=== PATIENT | male | born 1960 | race African-American/Black ===

== ENCOUNTER 2020-08-05 11:51 | Observation (INO) ==
[2020-08-05] MEDS ORDERED: NITROGLYCERIN SL 0.4 MG/TAB TAB SL PRN ×2 (12:04→15:54)
[2020-08-05] MEDS ORDERED: NITROGLYCERIN 2% OINTMENT 30GM TUBE EXT STA (12:04)
[2020-08-05] MEDS ORDERED: SODIUM CHLORIDE 0.9% 1000ML 1,000 ML IV STA (12:08)
[2020-08-05] MEDS ORDERED: SODIUM CHLORIDE 0.9% 1000ML 500 ML IV ONE (12:08)
[2020-08-05 12:14] LABS: Basophils # (auto) 0.01 K/uL (0-0.2); Basophils % (auto) 0.1 %; Eosinophils # (auto) 0.06 K/uL (0-0.5); Eosinophils % (auto) 0.9 %; Hematocrit (blood only) 40.3 % (42-52); Hemoglobin 12.4 g/dL (14.0-18.0); Immature Granulocytes # (auto) 0.02 K/uL (0.00-0.02); Immature Granulocytes % (auto) 0.3 %; Lymphocytes % (auto) 37.1 %; Mean Corpuscular Hemoglobin 24.8 pg (25-34); Mean Corpuscular Hgb Conc 30.8 g/dL (32-36); Mean Corpuscular Volume 80.4 fL (80-100); Mean Platelet Volume 11.2 fL (7.4-10.4); Monocytes # (auto) 0.49 K/uL (0.11-0.59); Neutrophils # (auto) 3.82 K/uL (1.4-6.5); Neutrophils % (auto) 54.6 %; Platelet Count 193 K/uL (130-400); RDW Coefficient of Variation 15.4 % (11.5-14.5); RDW Standard Deviation 45.1 fL (36.4-46.3); Red Blood Count 5.01 M/uL (4.7-6.1)
[2020-08-05 12:24] LABS: D Dimer 190 ug/L FEU (0-500)
[2020-08-05 12:42] LABS: Alanine Aminotransferase 39 U/L (12-78); Albumin Level 3.1 gm/dl (3.4-5.0); BUN Creatinine Ratio 9.3 (10-20); Blood Urea Nitrogen 10 mg/dl (7-18); Calcium 8.2 mg/dl (8.5-10.1); Carbon Dioxide 22 mmol/L (21-32); Chloride 113 mmol/L (98-107); Creatinine Clr Calc Pharmacy 108.6 ml/min; Est GFR (African American) 87.2; Est GFR (Non-African American) 75.3; Glucose 103 mg/dl (70-99); Lipase 109 U/L (73-393); Sodium 143 mmol/L (136-145)
[2020-08-05 12:46] LABS: Albumin Globulin Ratio 0.8 (0.9-2); Alkaline Phosphatase 124 U/L (45-117); Bilirubin,Total 0.3 mg/dl (0.2-1); Total Protein 7.1 gm/dl (6.4-8.2); Troponin I < 0.015 ng/ml (0-0.045)
--- NOTE | 2020-08-05 12:57 | XRay Report ---
XR chest 1V portable HISTORY: Atypical Chest Pain COMPARISON: None. FINDINGS: Low lung volumes with mild elevation the right hemidiaphragm. Increased markings at the panda g bases likely represent dependent change/atelectasis. The upper lung zones remain clear. No focal luisito ng consolidations to suggest pneumonia. No evidence for pulmonary edema. Cardiac silhouette is border line enlarged. This may be accentuated by the low lung volumes. IMPRESSION: Low lung findings with increased markings at the lung bases favoring dependent change/atelectasis. Ot herwise, no acute process within the chest. ACT 112: Negative or not required by law. Electronically signed by: Francisco Barajas M.D. 08/05/2020 12:56 PM
[2020-08-05] MEDS ORDERED: KETOROLAC TROMETHAMINE 15 MG/ML VIAL IV ONE (13:02)
--- NOTE | 2020-08-05 13:06 | Emergency Department Note ---
Impression & Plan Substernal chest pain ED Provider Note INFORMANT: Patient ED PROVIDER(S): Abdiel Juarez MD CHIEF COMPLAINT: Chest pain PLAN: Disposition: Admitted Condition: Good Outpatient prescription management: none Referral: None MEDICAL DECISION MAKING: Patient presented due to chest pain. Has been using nitroglycerin. He is a cardiac history. His ECG was nonischemic. Chest x-ray was unremarkable. Troponin and D-dimer are negative. Chemistry panel CBC unremarkable. Given his cardiac history further management was felt to be appropriate in the hospital. Patient was given nitro glycerin, Nitropaste, and Toradol. [facility] The patient was evaluated by Dr. Haddad and admitted for further management. Triage Nursing notes reviewed and agree them. Vital Signs: reviewed and remarkable for no significant abnormalities Differential diagnosis: Cardiac ischemia, aortic dissection, pulmonary embolism, pneumothorax, pneumonia, pericarditis, myocarditis, esophageal rupture, GERD, cholecystitis, pancreatitis, musculoskeletal, as well as other pathologies. Diagnostics interpreted by me: ECG: Twelve-lead ECG reveals sinus rhythm with PVCs at [address] elevation or depression. Normal axis and QRS. Cardiac Monitoring:Cardiac monitoring ordered by me: The patient was placed on continuous cardiac monitoring and observed. It revealed a normal sinus rhythm at 72 beats per minute without ectopy or evidence of dysrhythmia. Imaging studies: Chest x-ray. Findings: A chest x-ray was performed and revealed no pneumothorax, effusion, infiltrate, pulmonary edema, free air under the diaphragm, or wide mediastinum. Impression: No acute disease. Consultation(s): [facility] HPI: The patient is a 60 year old male who presents to the Emergency Room with complaints of chest pain. This started over the last week and is exertional . The patient also notes the following associated symptoms, shortness of breath. The patient has been using nitroglycerin relieving factors. Current pain is rated as 6/10. Patient was given nitroglycerin by EMS. Pt denies LOC, headache, fevers, chills, diaphoresis, visual changes, neck pain, breathing difficulties, nausea, vomiting, abdominal pain, back pain, melena, hematochezia, urinary symptoms, numbness, weakness, lymphadenopathy, rash, or other compla ints. ROS: See above HPI for pertinent positives & negatives. A total of 10 systems reviewed and were otherwise negative. PAST MEDICAL HISTORY:See Below , CAD, [place] PAST SURGICAL HISTORY:See Below, coronary stent FAMILY HISTORY:See Below SOCIAL HISTORY:See Below, incarcerated HOME MEDICATIONS:See Below ALLERGIES:See Below VITALS:See Below PHYSICAL EXAMINATION: GENERAL: Awake, alert, well-appearing, in no distress HENT: Normocephalic, atraumatic. Oropharynx unremarkable. EYES: Normal conjunctiva. Sclera non-icteric. NECK: Inspection normal. Non-tender. Supple. No nuchal rigidity. FROM. No masses. RESPIRATORY: Clear to auscultation. No wheezes. No rales. Normal respiratory effort. CARDIAC: Normal rate. Normal rhythm. No murmurs. No rubs. Extremities warm and well perfused. Pulses equal. No JVD. GI: Soft, non-distended. No tenderness to palpation. No rebound or guarding. No masses. RECTAL: Deferred. MUSCULOSKELETAL: Atraumatic. Chest examination reveals no tenderness. The back is symmetrical on inspection without obvious abnormality. There is no CVA tenderness to palpation. No joint edema. LOWER EXTREMITIES: Calves are equal size bilaterally and non-tender. No edema. No discoloration. NEURO: Normal sensorium. No sensory or motor deficits noted. SKIN: No rash or jaundice noted. Abdiel Juarez MD Past Med/Surg History Medical History (Updated 08/05/20 @ 14:11 by Bam Haddad MD) BPH (benign prostatic hyperplasia) Heart attack Heart failure Hypercholesterolemia Hypertension Seizure Stroke Surgical History History of heart surgery Family History Mother Diabetes Heart disease Hypertension Sister Gastric cancer Heart disease Social History Smoking Status: Former smoker Second Hand Exposure: No; Do You Dip or Chew Tobacco: No; Tobacco Cessation Education Requested by Patient: No Hx Alcohol Use: No Hx Substance Use: No Preferred Language: [place] Citizen Beliefs That Will Affect Care: None marital status: Single Current Living Situation: Other Current Living Situation Comment: [facility] Other Information That Helps Us Care for You: No Feels Safe at Home: Declines to Answer Safety Concerns: Feels Safe At This Time Assistive Devices: None Allergies Allergies Allergy/AdvReac Type Severity Reaction Status Date / Time No Known Allergies Allergy Verified 08/05/20 12:49 Home Meds Home Medications Medication Instructions Recorded Confirmed atorvastatin 40 mg PO QAM 02/28/20 08/05/20 cyanocobalamin (vitamin B-12) 1,000 mcg IM MONTHLY 02/28/20 08/05/20 duloxetine 120 mg PO QAM 02/28/20 08/05/20 folic acid 1 mg PO DAILY 02/28/20 08/05/20 hydroxyzine pamoate 50 mg PO HS 02/28/20 08/05/20 isosorbide mononitrate 120 mg PO BID 02/28/20 08/05/20 levetiracetam 500 mg PO BID 02/28/20 08/05/20 metoprolol tartrate 25 mg PO BID 02/28/20 08/05/20 nitroglycerin 0.4 mg SUBLINGUAL UD PRN 02/28/20 08/05/20 oxcarbazepine 600 mg PO BID 02/28/20 08/05/20 tamsulosin 0.4 mg PO BID 02/28/20 08/05/20 topiramate 50 mg PO BID 02/28/20 08/05/20 aspirin 81 mg PO DAILY 05/15/20 08/05/20 dutasteride 0.5 mg PO QAM 05/15/20 08/05/20 mirtazapine 30 mg PO HS 05/15/20 08/05/20 omeprazole 20 mg PO QAM 05/15/20 08/05/20 diclofenac potassium 50 mg PO TID 08/05/20 08/05/20 hydroxyzine pamoate 25 mg PO HS 08/05/20 08/05/20 methocarbamol 1,000 mg PO BID 08/05/20 08/05/20 prednisone 10 mg PO DAILY 08/05/20 08/05/20 Results & Data (ED) Vital Signs Vital Signs - 24 hr 08/05/20 12:02 08/05/20 13:38 Temperature 37 C Temperature Source Oral Pulse Rate 78 Pulse Rate [Left Finger] 75 Respiratory Rate 16 20 Blood Pressure 121/82 Blood Pressure [Left Arm] 132/91 Blood Pressure Mean 95 Blood Pressure Mean [Left Arm] 104 Pulse Oximetry 94 96 Oxygen Delivery Method Room Air Room Air Sepsis Recent Fever Within 48 Hours No Sepsis New/Unexplained Change in Mental Status No Sepsis Action Taken by Nursing No Action Required Laboratory Data Result diagrams: 08/05/20 12:01 08/05/20 13:00 Lab Results 08/05/20 08/05/20 08/05/20 Range/Units 12:01 12:01 12:01 WBC 7.00 (4.8-10.8) K/uL RBC 5.01 (4.7-6.1) M/uL Hgb 12.4 L (14.0-18.0) g/dL Hct 40.3 L (42-52) % MCV 80.4 (80-100) fL MCH 24.8 L (25-34) pg MCHC 30.8 L (32-36) g/dL RDW Std Deviation 45.1 (36.4-46.3) fL RDW Coeff of Axel 15.4 H (11.5-14.5) % Plt Count 193 (130-400) K/uL MPV 11.2 H (7.4-10.4) fL Immature Gran % (Auto) 0.3 % Neut % (Auto) 54.6 % Lymph % (Auto) 37.1 % Taliaferro % (Auto) 7.0 % Eos % (Auto) 0.9 % Baso % (Auto) 0.1 % Neut # (Auto) 3.82 (1.4-6.5) K/uL Lymph # (Auto) 2.60 (1.2-3.4) K/uL Tal[place]ferro # (Auto) 0.49 (0.11-0.59) K/uL Eos # (Auto) 0.06 (0-0.5) K/uL Baso # (Auto) 0.01 (0-0.2) K/uL Immature Gran # (Auto) 0.02 (0.00-0.02) K/uL D-Dimer 190 (0-500) ug/L FEU Sodium 143 (136-145) mmol/L Potassium (3.5-5.1) mmol/L Chloride 113 H (98-107) mmol/L Carbon Dioxide 22 (21-32) mmol/L Anion Gap 8.0 (3-11) BUN 10 (7-18) mg/dl Creatinine 1.08 (0.6-1.4) mg/dl Est Cr Clr Drug Dosing 108.6 ml/min Est GFR ( Amer) 87.2 Est GFR (Non-Af Amer) 75.3 BUN/Creatinine Ratio 9.3 L (10-20) Glucose 103 H (70-99) mg/dl Calcium 8.2 L (8.5-10.1) mg/dl Total Bilirubin 0.3 (0.2-1) mg/dl AST (15-37) U/L ALT 39 (12-78) U/L Alkaline Phosphatase 124 H (45-117) U/L Troponin I < 0.015 (0-0.045) ng/ml Total Protein 7.1 (6.4-8.2) gm/dl Albumin 3.1 L (3.4-5.0) gm/dl Globulin 4.0 (2.5-4.0) gm/dl Albumin/Globulin Ratio 0.8 L (0.9-2) Lipase 109 (73-393) U/L COVID-19 Eval Order SARS-CoV-2, RNA, NAAT (NEGATIVE) 08/05/20 08/05/20 08/05/20 Range/Units 12:38 12:38 13:00 WBC (4.8-10.8) K/uL RBC (4.7-6.1) M/uL Hgb (14.0-18.0) g/dL Hct (42-52) % MCV (80-100) fL MCH (25-34) pg MCHC (32-36) g/dL RDW Std Deviation (36.4-46.3) fL RDW Coeff of Axel (11.5-14.5) % Plt Count (130-400) K/uL MPV (7.4-10.4) fL Immature Gran % (Auto) % Neut % (Auto) % Lymph % (Auto) % Taliaferro % (Auto) % Eos % (Auto) % Baso % (Auto) % Neut # (Auto) (1.4-6.5) K/uL Lymph # (Auto) (1.2-3.4) K/uL Tal[place]ferro # (Auto) (0.11-0.59) K/uL Eos # (Auto) (0-0.5) K/uL Baso # (Auto) (0-0.2) K/uL Immature Gran # (Auto) (0.00-0.02) K/uL D-Dimer (0-500) ug/L FEU Sodium (136-145) mmol/L Potassium 3.9 (3.5-5.1) mmol/L Chloride (98-107) mmol/L Carbon Dioxide (21-32) mmol/L Anion Gap (3-11) BUN (7-18) mg/dl Creatinine (0.6-1.4) mg/dl Est Cr Clr Drug Dosing ml/min Est GFR ( Amer) Est GFR (Non-Af Amer) BUN/Creatinine Ratio (10-20) Glucose (70-99) mg/dl Calcium (8.5-10.1) mg/dl Total Bilirubin (0.2-1) mg/dl AST 18 (15-37) U/L ALT (12-78) U/L Alkaline Phosphatase (45-117) U/L Troponin I (0-0.045) ng/ml Total Protein (6.4-8.2) gm/dl Albumin (3.4-5.0) gm/dl Globulin (2.5-4.0) gm/dl Albumin/Globulin Ratio (0.9-2) Lipase (73-393) U/L COVID-19 Eval Order Covid19 [facility] SARS-CoV-2, RNA, NAAT NEGATIVE (NEGATIVE) Administered Medications Sodium Chloride (Nss 1000ml) 1,000 mls @ 125 mls/hr IV .Q8H STA Stop: 08/05/20 20:07 Last Admin: 08/05/20 13:40 Dose: 125 mls/hr Documented by: [id number] Discontinued Medications Sodium Chloride (Nss 1000ml) 500 mls @ 999 mls/hr IV .Q31M ONE Stop: 08/05/20 12:38 Last Infusion: 08/05/20 13:00 Dose: 0 mls/hr Documented by: [id number] Admin: 08/05/20 12:13 Dose: 999 mls/hr Documented by: [id number] Ketorolac Tromethamine (Ketorolac Tromethamine 15 Mg/Ml Vial) 10 mg IV NOW ONE Stop: 08/05/20 13:03 Last Admin: 08/05/20 13:46 Dose: 10 mg Documented by: [id number] Nitroglycerin (Nitroglycerin Sl 0.4 Mg/Tab Tab) 0.4 mg SL UD PRN PRN Reason: Chest Pain Stop: 09/04/20 12:03 Last Admin: 08/05/20 12:13 Dose: 0.4 mg Documented by: [id number] Nitroglycerin (Nitroglycerin 2% Ointment 30gm Tube) 0.5 inch EXT NOW STA Stop: 08/05/20 12:05 Last Admin: 08/05/20 12:13 Dose: 0.5 inch Documented by: [id number] Discharge Plan Visit Data Chief Complaint: Chest Pain ED Provider: Abdiel Juarez Discharge Problem: Substernal chest pain Patient Disposition: Admitted As Inpatient Discharge Instructions Interventions: ED Discharge Assessment Last Done: 08/05/20 15:32
[2020-08-05 13:20] LABS: Potassium 3.9 mmol/L (3.5-5.1)
--- NOTE | 2020-08-05 13:25 | History & Physical Report ---
Date of Service August 05, 2020 Assessment & Plan (1) Substernal chest pain: Previous probability is high given the patient has obesity and the known history of coronary disease with history of having for her intracoronary stents. He is on isosorbide and metoprolol as well as atorvastatin and aspirin. Description however is difficult to under stand whether this is exertional chest pain or not. He also states he cannot walk on a treadmill subsequent if his troponins are negative we will have him evaluate the dobutamine stress test on 08/06/2020 We will continue his aspirin atorvastatin metoprolol, currently on Nitropaste will hold this so we can better explore his symptom complex, will readdress his isosorbide in the morning his typical dose of 120 (2) Difficulty voiding: Patient history of BPH and also meatal stenosis with intermittent straight caths he will continue on Flomax and cholesterol at our substitution (3) Seizure: Longstanding seizure history preceding his reported stroke in 2019 he takes Keppra for this and has not had a recent known seizure. He also takes Topamax which he says is prophylactic for migraine headaches (4) Depression: continues on duloxitine and remeron hs (5) DVT prophylaxis: DVT prevention is heparin therapy Patient wishes to be a full code History of Present Illness Primary Care Provider: LUCIUS Owen 60-year-old incarcerated male who presents to the emergency department with complaints of chest discomfort. Medications include aspirin atorvastatin isosorbide 120 twice daily metoprolol 25 twice daily. Initial evaluation emergency department included negative troponins and negative EKG. patient is very difficult to pin down about his symptoms in any way. He states that he had stents put in in the distant past [facility]. He also has a stroke which sounds obtain [facility] [employer] in July 2019 also [facility]. Patient currently having chest pain currently after being given nitro so was sublingual x2 Nitropaste and Toradol. He has no acute current of injury change on EKG. This patient is chest discomfort is vague at some point it may be related to recumbency which makes me think of GERD however he states it is not exacerbated by moving about the [facility] although he does not move" of as much as he wants to. He says he gained weight lately but has not been associate with lower extremity edema or orthopnea. We have no records from his previous excursions to [facility] Allergies Allergy/AdvReac Type Severity Reaction Status Date / Time No Known Allergies Allergy Verified 08/05/20 12:49 Home Medications Medication Instructions Recorded Confirmed Type atorvastatin 40 mg PO QAM 02/28/20 08/05/20 History cyanocobalamin (vitamin B-12) 1,000 mcg IM MONTHLY 02/28/20 08/05/20 History duloxetine 120 mg PO QAM 02/28/20 08/05/20 History folic acid 1 mg PO DAILY 02/28/20 08/05/20 History hydroxyzine pamoate 50 mg PO HS 02/28/20 08/05/20 History isosorbide mononitrate 120 mg PO BID 02/28/20 08/05/20 History levetiracetam 500 mg PO BID 02/28/20 08/05/20 History metoprolol tartrate 25 mg PO BID 02/28/20 08/05/20 History nitroglycerin 0.4 mg SUBLINGUAL UD PRN 02/28/20 08/05/20 History oxcarbazepine 600 mg PO BID 02/28/20 08/05/20 History tamsulosin 0.4 mg PO BID 02/28/20 08/05/20 History topiramate 50 mg PO BID 02/28/20 08/05/20 History aspirin 81 mg PO DAILY 05/15/20 08/05/20 History dutasteride 0.5 mg PO QAM 05/15/20 08/05/20 History mirtazapine 30 mg PO HS 05/15/20 08/05/20 History omeprazole 20 mg PO QAM 05/15/20 08/05/20 History diclofenac potassium 50 mg PO TID 08/05/20 08/05/20 History hydroxyzine pamoate 25 mg PO HS 08/05/20 08/05/20 History methocarbamol 1,000 mg PO BID 08/05/20 08/05/20 History prednisone 10 mg PO DAILY 08/05/20 08/05/20 History Past Med/Surg History Medical History (Updated 08/05/20 @ 14:11 by Bam Haddad MD) BPH (benign prostatic hyperplasia) Heart attack Heart failure Hypercholesterolemia Hypertension Seizure Stroke Surgical History History of heart surgery Family History Mother Diabetes Heart disease Hypertension Sister Gastric cancer Heart disease Social History Smoking Status: Never smoker marital status: Single Current Living Situation: Other Feels Safe at Home: Yes Review of Systems Review of Systems: Mild distress and fatigue no headache, blurry or double vision no speech or swallowing issues Patient has got substernal chest discomfort feeling like someone squeezing his heart no associated shortness of breath, cough or wheezes no abdominal pain, nausea or vomiting, diarrhea or constipation has a chronic left inguinal hernia which occasionally causes discomfort with ambulation Has difficulty urinating having had a history of venous stenosis requiring intermittent catheterizations no focal joint pain or swelling no back pain, CVA tenderness or radicular pain no bruising, bleeding or rashes no focal signs of weakness or numbness or altered sensation no complaints of anxiety or depression.. Physical Exam Physical Exam: The patient appeared well nourished and normally developed. Patient is morbidly obese with a BMI of 40 Vital signs as documented. Head exam is normocephalic atraumatic no scleral icterus Neck is without JVD, thyromegaly, or carotid bruits. Lungs are clear to auscultation, no focal loss of breath sounds Cardiac exam, Rhythm is regular.. No murmurs, rubs or gallops. Abdominal exam reveals normal bowel sounds, soft non tender, no masses He has minor left lower quadrant swelling and tenderness consistent with his hernia Extremities are nonedematous and both pedal pulses are present Neurologic exam is alert and oriented, no focal loss of strength or sensation Skin is without bruises or rashes Psychologically is without concerns for anxiety or depression Results & Data Results & Data ([facility]) Vital Signs (Past 12 Hours) Vital Signs Temp Pulse Resp BP Pulse Ox 08/05/20 12:02 98.6 F 78 16 121/82 94 Diagnostic Findings EKG shows normal sinus rhythm without acute ST regular changes. Chest x-ray shows dependent atelectasis but no overt infiltrates PG Care Time/CCT Total # of Minutes Spent Total Time Spent with Patient: Total time spent is greater than 50% in coordination of care (as documented) at patient's floor/unit and/or counseling patient: Coding Level of Care Code 80922 OBS Care - Level 3 Diagnoses Substernal chest pain R07.2 Difficulty voiding R39.198 Seizure R56.9 Depression F32.9 DVT prophylaxis Z29.9
--- NOTE | 2020-08-05 15:19 | Electrocardiogram Report ---
Test Reason : Blood Pressure : / mmHG Vent. Rate : 082 BPM Atrial Rate : 082 BPM P-R Int : 164 ms QRS Dur : 090 ms QT Int : 364 ms P-R-T Axes : 063 070 066 degrees QTc Int : 425 ms Sinus rhythm with occasional Premature ventricular complexes Otherwise normal ECG No previous ECGs available Confirmed by David Rock ([id number]) on 08/05/2020 3:18:47 PM Referred By: Brayden KAN Confirmed By:David Rock
[2020-08-05] MEDS ORDERED: MAGNESIUM HYDROXIDE SUSP 30 ML UDC PO PRN (15:54)
[2020-08-05] MEDS ORDERED: MoRPHine SULFATE 2 MG/ML CARP IV PRN (15:54)
[2020-08-05] MEDS ORDERED: LORazepam 0.5 MG TAB PO PRN (15:54)
[2020-08-05] MEDS ORDERED: ALUMINUM/MAGNESIUM SUSP 30 ML UDC PO PRN (15:54)
[2020-08-05] MEDS ORDERED: METOPROLOL TARTRATE 1 MG/ML VIAL IV PRN (15:54)
[2020-08-05] MEDS ORDERED: ONDANSETRON INJ 2 MG/ML 2 ML VIAL IV PRN (15:54)
[2020-08-05] MEDS: ACETAMINOPHEN 325 MG TAB PO PRN (18:17)
[2020-08-05] MEDS: HEPARIN SOD 5,000 UNIT/0.5 ML VIAL SQ SCH (20:40)
[2020-08-05] MEDS: TAMSULOSIN HCL 0.4 MG CAP PO SCH (20:40)
[2020-08-05] MEDS: ISOSORBIDE MONO EXTENDED REL 60 MG TABCR PO SCH (20:41)
[2020-08-05] MEDS: METOPROLOL TARTRATE 25 MG TAB PO SCH (20:42)
[2020-08-05] MEDS: levETIRAcetam 500 MG TAB PO SCH (20:42)
[2020-08-05] MEDS: PANTOprazole 40 MG TAB PO SCH (20:42)
[2020-08-05] MEDS: TOPIRAMATE 50 MG TAB PO SCH (20:43)
[2020-08-05] MEDS: MIRTAZAPINE TAB 15 MG TAB PO SCH (20:43)
[2020-08-06] MEDS: ACETAMINOPHEN 325 MG TAB PO PRN (05:22)
[2020-08-06 05:51] LABS: BUN Creatinine Ratio 12.2 (10-20); Creatinine Clr Calc Pharmacy 115.5 ml/min; Est GFR (African American) 100.6; Est GFR (Non-African American) 86.8
--- NOTE | 2020-08-06 07:38 | Hospitalist Progress Note ---
Date of Service August 06, 2020 Assessment & Plan (1) Substernal chest pain: Pre test probability is high given the patient has obesity and the known history of coronary disease with history of having for her intracoronary stents. He is on isosorbide and metoprolol as well as atorvastatin and aspirin. Description however is difficult to understand whether this is exertional chest pain or not. He also states he cannot walk on a treadmill subsequent if his troponins are negative we will have him evaluate the dobutamine stress test on 08/06/2020 We will continue his aspirin atorvastatin metoprolol, currently on Nitropaste will hold this so we can better explore his symptom complex, will readdress his isosorbide in the morning his typical dose of 120 2-9 Stress test with normal EKG and echo no evidence of myocardial ischemia or cardiac chest pain pain is reproducible on exam suggesting MSK cause, will trial ibuprofen (2) Difficulty voiding: Patient history of BPH and also meatal stenosis with intermittent straight caths he will continue on Flomax and cholesterol at our substitution (3) Seizure: Longstanding seizure history preceding his reported stroke in 2019 he takes Keppra for this and has not had a recent known seizure. He also takes Topamax which he says is prophylactic for migraine headaches (4) Depression: continues on duloxetine and remeron hs (5) DVT prophylaxis: DVT prevention is heparin therapy Patient wishes to be a full code Admission and Anticipated Discharge Date Admission Date: August 05, 2020 Subjective Paient reports persistence of left sided chest pain, radiating to left neck. Had normal stress test this morning. Denies any shortness of breath, nausea, diaphoresis. No dizziness. Eating well. Denies difficulty with bowel or bladder. Review of Systems Constitutional: no fever, no chills, no fatigue, no weakness, no anorexia, no weight loss and no weight gain Ear, Nose, Mouth, Throat: no nasal congestion, no sore throat and no dysphagia Respiratory: no cough and no dyspnea Cardiovascular: + chest pain; no dyspnea on exertion, no orthopnea and no palpitations Gastrointestinal: no abdominal pain, no nausea, no vomiting, no hematemesis, no dysphagia, no constipation, no diarrhea/loose stools, no blood in stools and no melena Genitourinary: no dysuria and no hematuria Musculoskeletal: no back pain, no joint pain, no myalgia and no muscle weakness Integumentary: no rash, no lesions, no skin ulcer, no erythema, no dry skin and no pruritus Neurologic: no falls, no localized weakness, no generalized weakness, no numbness, no paresthesia, no tremor(s) and no headache(s) Psychiatric: no depression, no suicidal ideation, no homicidal ideation and no anxiety Endocrine: no cold intolerance and no heat intolerance Hematologic / Lymphatic: no easy bleeding and no easy bruising Physical Exam Constitutional: well developed and well nourished; no acute distress Eyes: PERRL, conjunctivae normal, anicteric sclerae ENMT: Mouth: oral mucous membranes not dry Respiratory: normal respiratory effort; no respiratory distress and no labored breathing Auscultation: lungs clear to auscultation bilaterally; no crackles, no rales, no rhonchi and no wheezes Cardiovascular: Rate/Rhythm: regular rate and regular rhythm Heart Sounds: no murmur and no cardiac rub Vessels: normal peripheral pulses and radial pulses present; no JVD Extremities: no edema left chest wall is tender to palpation Gastrointestinal (Abdomen): Inspection/Auscultation: abdomen normal to inspection and normal bowel sounds; abdomen not distended Percussion/Palpation: abdomen soft; abdomen nontender, no guarding, abdomen not rigid and no hepatosplenomegaly Musculoskeletal: Head/Neck/Chest: normocephalic and head atraumatic Spine: no cervical spinal tenderness, no cervical muscular tenderness, no thoracic spinal tenderness and no lumbar spinal tenderness Skin: no rashes, warm and dry Neurologic: CN's II-XI intact bilaterally and moves all extremities Motor/Sensory: no tremor and no sensory deficit Psychiatric: Orientation: alert, oriented to person, oriented to place and oriented to time Apperance: appropriately groomed; not disheveled Affect: euthymic affect; no anxious affect and no tearful affect Genitourinary: no [place] catheter Results & Data Results & Data ([facility]) Vital Signs (Past 12 Hours) Vital Signs Pulse Resp BP 08/06/20 03:00 65 15 08/06/20 02:00 68 15 08/06/20 01:00 75 14 160/88 H 08/06/20 00:00 68 24 08/05/20 23:00 76 18 08/05/20 22:00 83 19 08/05/20 21:00 88 20 08/05/20 20:47 75 12 150/90 H 08/05/20 20:00 77 16 Laboratory Results Abnormal lab results 08/05/20 08/05/20 08/06/20 Range/Units 12:01 12:01 04:56 Hgb 12.4 L (14.0-18.0) g/dL Hct 40.3 L (42-52) % MCH 24.8 L (25-34) pg MCHC 30.8 L (32-36) g/dL RDW Coeff of Axel 15.4 H (11.5-14.5) % MPV 11.2 H (7.4-10.4) fL Chloride 113 H 114 H (98-107) mmol/L BUN/Creatinine Ratio 9.3 L (10-20) Glucose 103 H 102 H (70-99) mg/dl Calcium 8.2 L 8.0 L (8.5-10.1) mg/dl Alkaline Phosphatase 124 H (45-117) U/L Albumin 3.1 L (3.4-5.0) gm/dl Albumin/Globulin Ratio 0.8 L (0.9-2) Medications Administered Current Inpatient Medications Acetaminophen (Acetaminophen 325 Mg Tab) 650 mg PO Q4H PRN PRN Reason: Pain or Fever Stop: 09/04/20 15:53 Last Admin: 08/06/20 05:22 Dose: 650 mg Documented by: Al Hydrox/Mg Hydrox/Simethicone (Aluminum/Magnesium Susp 30 Ml Udc) 15 ml PO Q4H PRN PRN Reason: Dyspepsia Stop: 09/04/20 15:53 Aspirin (Aspirin 81 Mg Ectab) 81 mg PO DAILY [facility] Stop: 09/05/20 08:59 Atorvastatin Calcium (Atorvastatin 40 Mg Tab) 40 mg PO QAM [facility] Stop: 09/05/20 08:59 Duloxetine HCl (Duloxetine Hcl 60 Mg Cap) 120 mg PO QAM [facility] Stop: 09/05/20 08:59 Finasteride (Finasteride 5 Mg Tab) 5 mg PO QAM [facility] Stop: 09/05/20 08:59 Heparin Sodium (Porcine) (Heparin Sod 5,000 Unit/0.5 Ml Vial) 5,000 units SQ Q12 [facility] Stop: 09/04/20 20:59 Last Admin: 08/05/20 20:40 Dose: 5,000 units Documented by: Isosorbide Mononitrate (Isosorbide [place] Extended Rel 60 Mg Tabcr) 120 mg PO BID [facility] Stop: 09/04/20 20:59 Last Admin: 08/05/20 20:41 Dose: 120 mg Documented by: Levetiracetam (Levetiracetam 500 Mg Tab) 500 mg PO BID [facility] Stop: 09/04/20 20:59 Last Admin: 08/05/20 20:42 Dose: 500 mg Documented by: Lorazepam (Lorazepam 0.5 Mg Tab) 0.5 mg PO Q6H PRN PRN Reason: Anxiety Stop: 09/04/20 15:53 Last Admin: 08/05/20 20:44 Dose: 0.5 mg Documented by: Magnesium Hydroxide (Magnesium Hydroxide Susp 30 Ml Udc) 30 ml PO Q12H PRN PRN Reason: Constipation Stop: 09/04/20 15:53 Metoprolol Tartrate (Metoprolol Tartrate 25 Mg Tab) 25 mg PO BID [facility] Stop: 09/04/20 20:59 Last Admin: 08/05/20 20:42 Dose: 25 mg Documented by: Metoprolol Tartrate (Metoprolol Tartrate 1 Mg/Ml Vial) 5 mg IV Q4 PRN PRN Reason: sbp> 185, dbp >95, HR >120 Stop: 09/04/20 15:53 Mirtazapine (Mirtazapine Tab 15 Mg Tab) 30 mg PO HS [facility] Stop: 09/04/20 20:59 Last Admin: 08/05/20 20:43 Dose: 30 mg Documented by: Morphine Sulfate (Morphine Sulfate 2 Mg/Ml Carp) 2 mg IV Q30M PRN PRN Reason: Chest Pain Stop: 08/19/20 15:53 Nitroglycerin (Nitroglycerin Sl 0.4 Mg/Tab Tab) 0.4 mg SL UD PRN PRN Reason: Chest Pain Stop: 09/04/20 15:53 Ondansetron HCl (Ondansetron Inj 2 Mg/Ml 2 Ml Vial) 4 mg IV Q6H PRN PRN Reason: Nausea Stop: 09/04/20 15:53 Pantoprazole Sodium (Pantoprazole 40 Mg Tab) 40 mg PO BID [facility] Stop: 09/04/20 20:59 Last Admin: 08/05/20 20:42 Dose: 40 mg Documented by: Tamsulosin HCl (Tamsulosin Hcl 0.4 Mg Cap) 0.4 mg PO BID [facility] Stop: 09/04/20 20:59 Last Admin: 08/05/20 20:40 Dose: 0.4 mg Documented by: Topiramate (Topiramate 50 Mg Tab) 50 mg PO BID [facility] Stop: 09/04/20 20:59 Last Admin: 08/05/20 20:43 Dose: 50 mg Documented by: PG Care Time/CCT Total # of Minutes Spent Total Time Spent with Patient: Total time spent is greater than 50% in coordination of care (as documented) at patient's floor/unit and/or counseling patient: Coding Level of Care Code 76305 Subseq Hosp Care Lvl 2 Diagnoses Substernal chest pain R07.2 Difficulty voiding R39.198 Seizure R56.9 Depression F32.9 DVT prophylaxis Z29.9
--- NOTE | 2020-08-06 10:08 | Electrocardiogram Report ---
Test Reason : Blood Pressure : / mmHG Vent. Rate : 073 BPM Atrial Rate : 073 BPM P-R Int : 168 ms QRS Dur : 100 ms QT Int : 380 ms P-R-T Axes : 078 085 081 degrees QTc Int : 418 ms Normal sinus rhythm Normal ECG When compared with ECG of 05-AUG-2020 11:57, Premature ventricular complexes are no longer Present Confirmed by David Rock ([id number]) on 08/06/2020 10:08:00 AM Referred By: Brayden KAN Confirmed By:David Rock
[2020-08-06] MEDS: DULoxetine HCL 60 MG CAP PO SCH (10:25)
[2020-08-06] MEDS: FINASTERIDE 5 MG TAB PO SCH (10:25)
[2020-08-06] MEDS: ASPIRIN 81 MG ECTAB PO SCH (10:25)
[2020-08-06] MEDS: ISOSORBIDE MONO EXTENDED REL 60 MG TABCR PO SCH ×2 (10:25→20:57)
[2020-08-06] MEDS: ATORVASTATIN 40 MG TAB PO SCH ×2 (10:26→20:53)
[2020-08-06] MEDS: TAMSULOSIN HCL 0.4 MG CAP PO SCH ×2 (10:26→20:55)
[2020-08-06] MEDS: levETIRAcetam 500 MG TAB PO SCH ×2 (10:26→20:53)
[2020-08-06] MEDS: TOPIRAMATE 50 MG TAB PO SCH ×2 (10:26→20:55)
[2020-08-06] MEDS: PANTOprazole 40 MG TAB PO SCH ×2 (10:26→20:54)
[2020-08-06] MEDS: METOPROLOL TARTRATE 25 MG TAB PO SCH ×2 (10:26→20:54)
[2020-08-06] MEDS: DOBUTamine HCL 12.5 MG/ML 20 ML VIAL IV ONE ×2 (10:27→11:18)
[2020-08-06] MEDS: ATROPINE SULFATE 0.1 MG/ML 10ML SYR IV ONE ×2 (10:27→11:17)
[2020-08-06] MEDS: METOPROLOL TARTRATE 1 MG/ML VIAL IV ONE ×2 (10:27→11:19)
[2020-08-06] MEDS: HEPARIN SOD 5,000 UNIT/0.5 ML VIAL SQ SCH ×2 (11:17→20:53)
--- NOTE | 2020-08-06 12:14 | XCELERA ---
[id number]
[2020-08-06] MEDS ORDERED: IBUPROFEN 200 MG TAB PO STA (13:04)
[2020-08-06] MEDS: MIRTAZAPINE TAB 15 MG TAB PO SCH (20:56)
[2020-08-07 05:16] LABS: Calcium 8.4 mg/dl (8.5-10.1); Creatinine Clr Calc Pharmacy 105.6 ml/min; Est GFR (African American) 90.3; Est GFR (Non-African American) 77.9; Magnesium 2.3 mg/dl (1.8-2.4); Phosphorus 2.8 mg/dl (2.5-4.9)
[2020-08-07 05:42] LABS: Hematocrit (blood only) 39.9 % (42-52); Hemoglobin 12.4 g/dL (14.0-18.0); Mean Corpuscular Hgb Conc 31.1 g/dL (32-36); Mean Corpuscular Volume 80.4 fL (80-100); Mean Platelet Volume 11.1 fL (7.4-10.4); Platelet Count 208 K/uL (130-400); RDW Coefficient of Variation 15.5 % (11.5-14.5); RDW Standard Deviation 45.3 fL (36.4-46.3); Red Blood Count 4.96 M/uL (4.7-6.1); White Blood Count 5.43 K/uL (4.8-10.8)
[2020-08-07] MEDS: ATORVASTATIN 40 MG TAB PO SCH (08:18)
[2020-08-07] MEDS: ASPIRIN 81 MG ECTAB PO SCH (08:18)
[2020-08-07] MEDS: TOPIRAMATE 50 MG TAB PO SCH (08:18)
[2020-08-07] MEDS: FINASTERIDE 5 MG TAB PO SCH (08:18)
[2020-08-07] MEDS: TAMSULOSIN HCL 0.4 MG CAP PO SCH (08:18)
[2020-08-07] MEDS: METOPROLOL TARTRATE 25 MG TAB PO SCH (08:18)
[2020-08-07] MEDS: DULoxetine HCL 60 MG CAP PO SCH (08:18)
[2020-08-07] MEDS: PANTOprazole 40 MG TAB PO SCH (08:18)
[2020-08-07] MEDS: ISOSORBIDE MONO EXTENDED REL 60 MG TABCR PO SCH (08:18)
[2020-08-07] MEDS: levETIRAcetam 500 MG TAB PO SCH (08:19)
[2020-08-07] MEDS: HEPARIN SOD 5,000 UNIT/0.5 ML VIAL SQ SCH (08:19)
[2020-08-07] MEDS ORDERED: DOCUSATE SODIUM/SENNA 50/8.6MG TAB PO ONE (08:22)
[2020-08-07] MEDS ORDERED: POLYETHYLENE (MIRALAX) 17 GM PACK PO ONE (08:22)
--- NOTE | 2020-08-07 08:27 | Electrocardiogram Report ---
Test Reason : Blood Pressure : / mmHG Vent. Rate : 070 BPM Atrial Rate : 070 BPM P-R Int : 172 ms QRS Dur : 100 ms QT Int : 384 ms P-R-T Axes : 061 074 075 degrees QTc Int : 414 ms Poor data quality, interpretation may be adversely affected Normal sinus rhythm Normal ECG When compared with ECG of 06-AUG-2020 07:14, No significant change was found Confirmed by David Rock ([id number]) on 08/07/2020 8:27:50 AM Referred By: Brayden KAN Confirmed By:David Rock
--- NOTE | 2020-08-07 08:40 | Discharge Summary ---
Date of Service August 07, 2020 Principal Diagnosis chest pain Discharge Exam Constitutional well developed and well nourished; no acute distress Eyes PERRL, conjunctivae normal, anicteric sclerae ENMT Mouth: oral mucous membranes not dry Respiratory normal respiratory effort; no respiratory distress and no labored breathing Auscultation: lungs clear to auscultation bilaterally; no crackles, no rales, no rhonchi and no wheezes Cardiovascular Rate/Rhythm: regular rate and regular rhythm Heart Sounds: no murmur and no cardiac rub Vessels: normal peripheral pulses and radial pulses present; no JVD Extremities: no edema Gastrointestinal (Abdomen) Inspection/Auscultation: abdomen normal to inspection and normal bowel sounds; abdomen not distended Percussion/Palpation: abdomen soft; abdomen nontender, no guarding, abdomen not rigid and no hepatosplenomegaly Musculoskeletal Head/Neck/Chest: normocephalic and head atraumatic Spine: no cervical spinal tenderness, no cervical muscular tenderness, no thor acic spinal tenderness and no lumbar spinal tenderness Skin no rashes, warm and dry Neurologic CN's II-XI intact bilaterally and moves all extremities Motor/Sensory: no tremor and no sensory deficit Psychiatric Orientation: alert, oriented to person, oriented to place and oriented to time Apperance: appropriately groomed; not disheveled Affect: euthymic affect; no anxious affect and no tearful affect Discharge Data Allergies Allergy/AdvReac Type Severity Reaction Status Date / Time No Known Allergies Allergy Verified 08/05/20 12:49 Consultations 08/05/20 13:14 ED Decision to Admit Stat Hospital Course (1) Substernal chest pain: Pre test probability is high given the patient has obesity and the known history of coronary disease with history of having for her intracoronary stents. He is on isosorbide and metoprolol as well as atorvastatin and aspirin. Description however is difficult to understand whether this is exertional chest pain or not. He also states he cannot walk on a treadmill subsequent if his troponins are negative we will have him evaluate the dobutamine stress test on 08/06/2020 We will continue his aspirin atorvastatin metoprolol, currently on Nitropaste will hold this so we can better explore his symptom complex, will readdress his isosorbide in the morning his typical dose of 120 2-9 Stress test with normal EKG and echo no evidence of myocardial ischemia or cardiac chest pain pain is reproducible on exam suggesting MSK cause, will trial ibuprofen 2-10 patient is currently pain free, stable for discharge back to residential (2) Difficulty voiding: Patient history of BPH and also meatal stenosis with intermittent straight caths he will continue on Flomax and cholesterol at our substitution (3) Seizure: Longstanding seizure history preceding his reported stroke in 2019 he takes Keppra for this and has not had a recent known seizure. He also takes Topamax which he says is prophylactic for migraine headaches (4) Depression: continues on duloxetine and remeron hs (5) DVT prophylaxis: DVT prevention is heparin therapy Patient wishes to be a full code Total Time Total Time Spent Total Time Spent (In Minutes): 40 Total Time Includes: Examination of the Patient, Discharge Planning, Medication Reconciliation and Communication With Other Providers Discharge Plan Discharge Items [facility]position[facility] Reason For Visit: CHEST PAIN Discharge Diagnosis: 1. chest pain Activity: Resume your previous activity Non-emergency contact: Primary Care Provider Call non-emergency contact if: you have any medication questions Follow-up/Referrals: Brayden KAN [Primary Care Provider] - Diet: Regular Addtl Attending Provider Instructions: We performed a stress test which was normal and did not show any indication that your chest pain is related to coronary disease Your chest imaging was normal as well Your chest pain is thought to be related to musculoskeletal strain. You can use tylenol as needed for this pain You should limit the amount of NSAIDs you take, which can cause ulcers [facility] doctor can refer you to see a social work administrator for general medical management, if needed Pending Studies at Discharge: No Skilled Items Patient informed of condition?: Yes DNR: No Discharge Level of Care: Other Communicable Disease: No Discharge Prognosis: Stable Lines: None Urinary Catheter: No Medications and DC Order Prescriptions: Continued atorvastatin 40 mg Tablet 40 mg PO QAM RF: 0 duloxetine 60 mg Capsule,Delayed Release(Dr/Ec) 120 mg PO QAM RF: 0 folic acid 1 mg Tablet 1 mg PO DAILY RF: 0 hydroxyzine pamoate 50 mg Capsule 50 mg PO HS RF: 0 isosorbide mononitrate 120 mg Tablet Extended Release 24 Hr 120 mg PO BID RF: 0 levetiracetam 500 mg Tablet 500 mg PO BID RF: 0 metoprolol tartrate 25 mg Tablet 25 mg PO BID RF: 0 nitroglycerin 0.4 mg Tablet, Sublingual 0.4 mg sublingual UD PRN (Reason: Chest Pain) RF: 0 oxcarbazepine 600 mg Tablet 600 mg PO BID RF: 0 tamsulosin 0.4 mg Capsule 0.4 mg PO BID RF: 0 topiramate 50 mg Tablet 50 mg PO BID RF: 0 cyanocobalamin (vitamin B-12) 1,000 mcg/mL Solution 1,000 mcg IM MONTHLY RF: 0 aspirin 81 mg Tablet,Delayed Release (Dr/Ec) 81 mg PO DAILY RF: 0 mirtazapine 30 mg Tablet 30 mg PO HS RF: 0 omeprazole 20 mg Capsule,Delayed Release(Dr/Ec) 20 mg PO QAM RF: 0 dutasteride 0.5 mg Capsule 0.5 mg PO QAM RF: 0 methocarbamol 500 mg Tablet 1,000 mg PO BID RF: 0 prednisone 10 mg Tablet 10 mg PO DAILY RF: 0 diclofenac potassium 50 mg Tablet 50 mg PO TID RF: 0 hydroxyzine pamoate 25 mg Capsule 25 mg PO HS RF: 0 Admission Data Admit Date/Time: 08/05/20 13:46 Attending Provider: Brianna Silveira Admit Provider: Bam Haddad Primary Care Provider: Brayden KAN Other Providers: Bam Haddad Coding Level of Care Code D/C Day Management >30 mins Diagnoses Substernal chest pain R07.2 Difficulty voiding R39.198 Seizure R56.9 Depression F32.9 DVT prophylaxis Z29.9
== END 2020-08-07 11:30 ==
LOC: 1E 11:51 → ED 11:51 → SUATTDRO 13:46 → 1E 15:32